=== PATIENT | female | born 1975 | race Caucasian/White ===

== ENCOUNTER 2016-12-01 12:40 | Emergency (ER) | payer BC ==
[2016-12-01 12:55] VITALS: BP 111/49
--- NOTE | 2016-12-01 13:33 | RAD ---
HISTORY: Right hand pain and trauma COMPARISONS: None VIEWS: 4, Frontal, lateral, and oblique views of the right hand FINDINGS: BONE DENSITY: Normal. BONES: There is no displaced fracture. JOINTS: There is no arthropathy. ALIGNMENT: There is no dislocation. SOFT TISSUES: Unremarkable. OTHER FINDINGS: None. IMPRESSION: NO ACUTE OSSEOUS INJURY. IF SYMPTOMS PERSIST, RECOMMEND REPEAT IMAGING.
--- NOTE | 2016-12-01 13:37 | UC ---
Upper Extremity HPI - HPI Summary HPI Summary: Patient presents with CC of pain to thumb and first finger with pain radiating up her wrist after she fell onto an outstretched hand. She is unaware of the specific mechanism of action and states she was slightly intoxicated when she fell. Denies hitting head or LOC. Denies other injuries. Pain is radiating to the middle of the right forearm, but denies numbness or tingling. Denies color or temperature changes. She is unable to flex and extend the thumb. Denies previous injury to the area. - History of Current Complaint Chief Complaint: UCUpperExtremity Stated Complaint: RT HAND INJURY Time Seen by Provider: 12/01/16 12:51 Hx Obtained From: Patient Hx Last Menstrual Period: 11/28/16 ?: No Onset/Duration: Sudden Onset Severity Initially: Moderate Severity Currently: Moderate Pain Intensity: 8 Pain Scale Used: 0-10 Numeric Location Of Pain: Is Discrete @ - right thumb and first finger pain Aggravating Factor(s): Movement, Flexion, Extension Alleviating Factor(s): Rest Associated Signs And Symptoms: Positive: Negative Related History: Dominant Hand Right - Risk Factors Non-Orthopedic Risk Factor: Negative DVT Risk Factors: Negative Septic Arthritis Risk Factor: Negative Compartment Syndrome Risk Factors: Pain - Allergies/Home Medications Allergies/Adverse Reactions: Allergies Allergy/AdvReac Type Severity Reaction Status Date / Time Prochlorperazine Allergy See Comment Verified 12/01/16 12:55 [From Compazine] Home Medications: Home Medications Escitalopram Oxalate [Lexapro 20 mg] 20 mg PO DAILY 12/01/16 [History Confirmed 12/01/16] PMH/Surg Hx/FS Hx/Imm Hx Previously Healthy: Yes - Surgical History Surgical History: None - Family History Known Family History: Positive: Unknown - Social History Occupation: Employed Full-time Lives: With Family Alcohol Use: Occasionally Substance Use Type: None Smoking Status (MU): Never Smoked Tobacco Review of Systems Constitutional: Negative Skin: Negative Respiratory: Negative Cardiovascular: Negative Motor: Decreased ROM - thumb and index finger with pain on active and passive ROM Musculoskeletal: Arthralgia - thumb and index of right hand Neurological: Negative Psychological: Negative All Other Systems Reviewed And Are Negative: Yes Physical Exam Triage Information Reviewed: Yes Appearance: Well-Appearing, No Pain Distress, Well-Nourished Vital Signs: Initial Vital Signs Temp 98.3 F 12/01/16 12:51 Pulse 61 12/01/16 12:51 Resp 16 12/01/16 12:51 BP 111/49 12/01/16 12:51 Pulse Ox 99 12/01/16 12:51 Vital Signs Reviewed: Yes Eye Exam: Normal Eyes: Positive: Conjunctiva Clear Neck exam: Normal Neck: Positive: Supple, No Lymphadenopathy Respiratory Exam: Normal Respiratory: Positive: Chest non-tender, Lungs clear Cardiovascular Exam: Normal Cardiovascular: Positive: RRR Musculoskeletal: Positive: Strength Limited @ - thum of right hand, ROM Limited @ - thumb flexion and extension Psychological Exam: Normal Psychological: Positive: Normal Response To Family Skin Exam: Normal Upper Extremity Course/Dx - Course Course Of Treatment: No acute osseus injury. Recommended repeat imaging if symptoms persist. Discussed with patient the need for further evaluation if symptoms do not improve. Ortho follow up given. Thumb spica placed. Patient is unable to flex or extend the right thumb. Ligamentous injury explained to patient and she is OK with follow up. Return precautions given. URI. - Differential Dx/Diagnosis Differential Diagnosis/HQI/PQRI: Contusion, Strain, Sprain Provider Diagnoses: Skier's Thumb/ Thumb Strain Discharge - Discharge Plan Condition: Stable Disposition: HOME Patient Education Materials: Skier's Thumb (ED) Referrals: Jes Garcia [Primary Care Provider] - Adam Saunders MD [Medical Doctor] - Additional Instructions: You have a strain in your thumb. If your symptoms persist, we recommend repeat imaging and follow up with ortho. I have given you an ortho physician referral. Thumb spica splint for 2-3 days. Ice the area, rest, the area. Ibuprofen 600mg three times daily.
== END 2016-12-01 13:48 | disposition home or self-care (01) ==
LOC: UCEAST 12:40
DX: Z72.0 Tobacco use (principal); S63.601A Unspecified sprain of right thumb, initial encounter; W18.30XA Fall on same level, unspecified, initial encounter; Y93.9 Activity, unspecified; Y92.9 Unspecified place or not applicable; Y99.9 Unspecified external cause status
CPT/HCPCS: 99211; G0463

== ENCOUNTER 2018-03-19 13:07 | Emergency (ER) | payer BC, OTHER ==
[2018-03-19 14:55] LABS: ABS Basophils 0.1 10^3/ul (0-0.2); ABS Eosinophils 0.2 10^3/ul (0-0.6); ABS Lymphocytes 2.1 10^3/ul (1.0-4.8); ABS Monocytes 0.9 10^3/ul (0-0.8); ABS Neutrophils 7.6 10^3/ul (1.5-7.7); ABS Nucleated RBC 0 10^3/ul; Eosinophil % 1.8 % (0-6); Hematocrit 43 % (35-47); Hemoglobin 14.4 g/dl (12.0-16.0); Lymphocyte % 19.1 % (25-47); Mean Corpuscular HGB Conc 34 g/dl (31-36); Mean Corpuscular Hemoglobin 33 pg (27-31); Mean Corpuscular Volume 96 fL (80-97); Mean Platelet Volume 9.1 um3 (7.4-10.4); Nucleated Red Blood Cells % 0.1; Platelet Count 284 10^3/ul (150-450); Red Blood Count 4.42 10^6/ul (4.00-5.40); Red Cell Distribution Width 13 % (10.5-15); White Blood Count 10.9 10^3/ul (3.5-10.8)
[2018-03-19 15:14] LABS: EGFR Non-African American 78.3 (>60)
[2018-03-19 15:16] LABS: Urine Appearance Clear; Urine Blood Negative (Negative); Urine Color Straw; Urine Ketones Negative (Negative); Urine Protein Negative (Negative); Urine Red Blood Cell Trace(0-2/hpf) (Absent); Urine Urobilinogen Negative (Negative); Urine White Blood Cell Trace(0-5/hpf) (Absent)
--- NOTE | 2018-03-19 15:24 | ED ---
Abdominal Pain/Female - HPI Summary HPI Summary: This pt is a 42 y/o female presenting to [facility] [place]/o right sided abdominal pain x3 days. Pt reports her pain began 3 days ago located on the right side of her abdomen. She has hx of ovarian cysts and states she thought this pain was her ovarian cysts. Pt notes ovarian cyst pain usually resolved on its own and this time her pain persisted. At onset of her abd pain, she rates it 7/10 in severity. Currently her pain is worse. Denies nausea, vomiting, diarrhea, constipation, fever, chills, vaginal discharge, vaginal bleeding. PMHx: uterine ablation, knee surgery, breast surgery, ovarian cysts. LMP: 2 weeks ago. Denies tobacco and drug use. Pt notes occasional alcohol use. - History of Current Complaint Chief Complaint: EDAbdPain Stated Complaint: ABD PAIN Time Seen by Provider: 03/19/18 15:15 Hx Obtained From: Patient Hx Last Menstrual Period: 11/28/16 Onset/Duration: Lasting Days, Still Present Timing: Days Severity Currently: Severe Pain Intensity: 8 Pain Scale Used: 0-10 Numeric Aggravating Factor(s): Nothing Alleviating Factor(s): Nothing Associated Signs and Symptoms: Negative: Fever, Constipation, Vaginal Bleeding, Vaginal Discharge, Nausea, Vomiting, Diarrhea Allergies/Adverse Reactions: Allergies Allergy/AdvReac Type Severity Reaction Status Date / Time prochlorperazine Allergy See Comment Verified 03/19/18 15:23 [From Compazine] PMH/Surg Hx/FS Hx/Imm Hx Endocrine/Hematology History: Denies: Hx Diabetes Cardiovascular History: Denies: Hx Congestive Heart Failure, Hx Hypertension History: Reports: Other Problems/Disorders - ovarian cysts Denies: Hx Renal Disease - Surgical History Surgery Procedure, Year, and Place: Uterine ablation. Knee surgery. Breast reduction Infectious Disease History: No Infectious Disease History: Denies: History Other Infectious Disease, Traveled Outside the [place] in Last 30 Days - Family History Known Family History: Positive: Hypertension, Diabetes Family History: dyslipidemia - Social History Alcohol Use: Occasionally Substance Use Type: Reports: None Smoking Status (MU): Never Smoked Tobacco Review of Systems Negative: Fever, Chills Cardiovascular: Negative Respiratory: Negative Positive: Abdominal Pain. Negative: Vomiting, Diarrhea, Nausea, Other - constipation Negative: discharge, other - vaginal bleeding All Other Systems Reviewed And Are Negative: Yes Physical Exam - Summary Physical Exam Summary: VITAL SIGNS: Reviewed. GENERAL: Patient is an obese female. Patient is not in any acute respiratory distress. HEAD AND FACE: Normocephalic and atraumatic. EYES: PERRLA, EOMI x 2, No injected conjunctiva. EARS: Hearing grossly intact. Ear canals and tympanic membranes are WNL. MOUTH: Oropharynx within normal limits. NECK: Supple, trachea is midline, no adenopathy, no JVD. CHEST: Symmetric, no tenderness at palpation LUNGS: Clear to auscultation bilaterally. No wheezing or crackles. CVS: RRR, S1 and S2 present, no murmurs or gallops appreciated. ABDOMEN: Soft, right lower quadrant abdominal tenderness. No signs of distention. Positive bowel sounds. Abd with guarding. No rebound and no masses palpated. No abdominal bruit or pulsations. Right pelvic tenderness. EXTREMITIES: FROM in all major joints, no edema, no cyanosis or clubbing. NEURO: Alert and oriented x 3. No acute neurological deficits. Speech is normal. SKIN: Dry and warm Triage Information Reviewed: Yes Vital Signs On Initial Exam: Initial Vitals Temp Pulse Resp BP Pulse Ox 97.2 F 87 16 126/68 98 03/19/18 13:09 03/19/18 13:09 03/19/18 13:09 03/19/18 13:09 03/19/18 13:09 Vital Signs Reviewed: Yes Diagnostics - Vital Signs Vital Signs Temp Pulse Resp BP Pulse Ox 03/19/18 14:43 98.2 F 72 16 120/51 100 03/19/18 13:09 97.2 F 87 16 126/68 98 - Laboratory Lab Results: Lab Results 03/19/18 03/19/18 03/19/18 Range/Units 14:40 14:40 14:42 WBC 10.9 H (3.5-10.8) 10^3/ul RBC 4.42 (4.00-5.40) 10^6/ul Hgb 14.4 (12.0-16.0) g/dl Hct 43 (35-47) % MCV 96 (80-97) fL MCH 33 H (27-31) pg MCHC 34 (31-36) g/dl RDW 13 (10.5-15) % Plt Count 284 (150-450) 10^3/ul MPV 9.1 (7.4-10.4) um3 Neut % (Auto) 70.3 (38-83) % Lymph % (Auto) 19.1 L (25-47) % Smith % (Auto) 8.2 H (0-7) % Eos % (Auto) 1.8 (0-6) % Baso % (Auto) 0.6 (0-2) % Absolute Neuts (auto) 7.6 (1.5-7.7) 10^3/ul Absolute Lymphs (auto) 2.1 (1.0-4.8) 10^3/ul Absolute Monos (auto) 0.9 H (0-0.8) 10^3/ul Absolute Eos (auto) 0.2 (0-0.6) 10^3/ul Absolute Basos (auto) 0.1 (0-0.2) 10^3/ul Absolute Nucleated RBC 0 10^3/ul Nucleated RBC % 0.1 Sodium 138 (135-145) mmol/L Potassium 4.1 (3.5-5.0) mmol/L Chloride 105 (101-111) mmol/L Carbon Dioxide 27 (22-32) mmol/L Anion Gap 6 (2-11) mmol/L BUN 10 (6-24) mg/dL Creatinine 0.81 (0.51-0.95) mg/dL Est GFR ( Amer) 94.8 (>60) Est GFR (Non-Af Amer) 78.3 (>60) BUN/Creatinine Ratio 12.3 (8-20) Glucose 111 H (70-100) mg/dL Lactic Acid 0.6 (0.5-2.0) mmol/L Calcium 9.2 (8.6-10.3) mg/dL Total Bilirubin 0.30 (0.2-1.0) mg/dL AST 13 (13-39) U/L ALT 10 (7-52) U/L Alkaline Phosphatase 57 (34-104) U/L C-Reactive Protein 5.24 (<8.01) mg/L Total Protein 6.9 (6.4-8.9) g/dL Albumin 4.3 (3.2-5.2) g/dL Globulin 2.6 (2-4) g/dL Albumin/Globulin Ratio 1.7 (1-3) Lipase 23 (11.0-82.0) U/L Urine Color Urine Appearance Urine pH (5-9) Ur Specific [place] (1.010-1.030) Urine Protein (Negative) Urine Ketones (Negative) Urine Blood (Negative) Urine Nitrate (Negative) Urine Bilirubin (Negative) Urine Urobilinogen (Negative) Ur Leukocyte Esterase (Negative) Urine WBC (Auto) (Absent) Urine RBC (Auto) (Absent) Ur Squamous Epith Cells (Absent) Urine Bacteria (Absent) Urine Glucose (Negative) 03/19/18 Range/Units 14:52 WBC (3.5-10.8) 10^3/ul RBC (4.00-5.40) 10^6/ul Hgb (12.0-16.0) g/dl Hct (35-47) % MCV (80-97) fL MCH (27-31) pg MCHC (31-36) g/dl RDW (10.5-15) % Plt Count (150-450) 10^3/ul MPV (7.4-10.4) um3 Neut % (Auto) (38-83) % Lymph % (Auto) (25-47) % Smith % (Auto) (0-7) % Eos % (Auto) (0-6) % Baso % (Auto) (0-2) % Absolute Neuts (auto) (1.5-7.7) 10^3/ul Absolute Lymphs (auto) (1.0-4.8) 10^3/ul Absolute Monos (auto) (0-0.8) 10^3/ul Absolute Eos (auto) (0-0.6) 10^3/ul Absolute Basos (auto) (0-0.2) 10^3/ul Absolute Nucleated RBC 10^3/ul Nucleated RBC % Sodium (135-145) mmol/L Potassium (3.5-5.0) mmol/L Chloride (101-111) mmol/L Carbon Dioxide (22-32) mmol/L Anion Gap (2-11) mmol/L BUN (6-24) mg/dL Creatinine (0.51-0.95) mg/dL Est GFR ( Amer) (>60) Est GFR (Non-Af Amer) (>60) BUN/Creatinine Ratio (8-20) Glucose (70-100) mg/dL Lactic Acid (0.5-2.0) mmol/L Calcium (8.6-10.3) mg/dL Total Bilirubin (0.2-1.0) mg/dL AST (13-39) U/L ALT (7-52) U/L Alkaline Phosphatase (34-104) U/L C-Reactive Protein (<8.01) mg/L Total Protein (6.4-8.9) g/dL Albumin (3.2-5.2) g/dL Globulin (2-4) g/dL Albumin/Globulin Ratio (1-3) Lipase (11.0-82.0) U/L Urine Color Straw Urine Appearance Clear Urine pH 6.0 (5-9) Ur Specific [place] 1.010 (1.010-1.030) Urine Protein Negative (Negative) Urine Ketones Negative (Negative) Urine Blood Negative (Negative) Urine Nitrate Negative (Negative) Urine Bilirubin Negative (Negative) Urine Urobilinogen Negative (Negative) Ur Leukocyte Esterase Trace A (Negative) Urine WBC (Auto) Trace(0-5/hpf) (Absent) Urine RBC (Auto) Trace(0-2/hpf) (Absent) Ur Squamous Epith Cells Present A (Absent) Urine Bacteria Absent (Absent) Urine Glucose Negative (Negative) Result Diagrams: 03/19/18 14:40 03/19/18 14:40 Lab Statement: Any lab studies that have been ordered have been reviewed, and results considered in the medical decision making process. - CT Abdomen/Pelvis CT CT Interpretation: No Acute Changes - IMPRESSION: 1. The appendix is unremarkable. 2. There is a 3.5 cm right ovarian cyst. 3. There is colonic diverticulosis without evidence for acute diverticulitis. 4. There are uterine fibroids, the largest measuring 2.[address] Heart has reviewed this report. CT Interpretation Completed By: Radiologist - Ultrasound No standard instances Ultrasound Interpretation: Positive (See Comments) - Transvaginal US IMPRESSION : 1. In the right ovary there is a 3.5 cm anechoic and avascular structure most consistent with a large follicle in a woman of this age. There is no sonographic evidence consistent with ovarian torsion. 2. At least 2 uterine fibroids are identified, both appear larger when compared to the May 23, 2016 pelvic ultrasound. 3. Again noted are pathologically enlarged periuterine veins measuring just under 7 mm in diameter. Such an appearance could be consistent with pelvic congestion syndrome which is characterized clinically by intermittent, late day, gravity dependent pelvic pain, severe menstrual pain, vague GI symptoms, dyspareunia and/or superficial varicose veins at the pelvis and lower extremities. Dr. Heart has reviewed this report. Ultrasound Interpretation Completed By: Radiologist Re-Evaluation - Re-Evaluation First Eval Re-Evaluation Time: 17:25 Comment: Dr. Cedeno in to see the pt. Abdominal Pain Fem Course/Dx - Course Course Of Treatment: This pt is a 42 y/o female presenting to [facility] c/o right sided abdominal pain x3 days. Pt reports her pain began 3 days ago located on the right side of her abdomen. She has hx of ovarian cysts and states she thought this pain was her ovarian cysts. Pt notes ovarian cyst pain usually resolved on its own and this time her pain persisted. At onset of her abd pain, she rates it 7/10 in severity. Currently her pain is worse. Denies nausea, vomiting, diarrhea, constipation, fever, chills, vaginal discharge, vaginal bleeding. PMHx: uterine ablation, knee surgery, breast surgery, ovarian cysts. LMP: 2 weeks ago. Denies tobacco and drug use. Pt notes occasional alcohol use. PELVIC U/S IMPRESSION: 1. In the right ovary there is a 3.5 cm anechoic and avascular structure most consistent with a large follicle in a woman of this age. There is no sonographic evidence consistent with ovarian torsion. 2. At least 2 uterine fibroids are identified, both appear larger when compared to the. May 23, 2016 pelvic ultrasound. 3. Again noted are pathologically enlarged periuterine veins measuring just under 7 mm in diameter. Such an appearance could be consistent with pelvic congestion syndrome which is characterized clinically by intermittent, late day, gravity dependent pelvic pain, severe menstrual pain, vague GI symptoms, dyspareunia and/or superficial varicose veins at the pelvis and lower extremities. In the ED course the patient was given IV fluids, she was given Zofran, morphine and Toradol for the pain. I decided to the abdominal pelvic CT to rule out appendicitis since the patient started having some pain. Abdominal and pelvic CT IMPRESSION: 1. The appendix is unremarkable. 2. There is a 3.5 cm right ovarian cyst. 3. There is colonic diverticulosis without evidence for acute diverticulitis. 4. There are uterine fibroids, the largest measuring 2.8 cm. I discussed the case with Dr. Garcia from surgery who reviewed the abdominal pelvic CT and he is certain that this is not an appendicitis. Therefore I believe that the patients symptoms are secondary to the right ovarian cyst. I also discussed the case with and Dr. Jay who will be happy to follow up with the patient as an outpatient for possible ruling out and pelvic congestion syndrome. I discussed all the findings and test results with the patient. Patient was instructed to return to the emergency room immediately if any of the symptoms return or worsens. Plan of care was discussed with the patient and understands and agrees. All questions were answered at patient satisfaction. There were no further complaints or concerns. Lung exam before discharge: CTA B/L. Good air exchange. No wheezing or crackles heard. CVS: S1 and S2 present. No murmurs appreciated. Patient is alert and oriented x 3. Patient is hemodynamically stable. Patient will be discharged home with follow up PCP in the next 2-3 days. - Diagnoses Provider Diagnoses: Ovarian cyst Discharge - Sign-Out/Discharge Documenting (check all that apply): Patient Departure - Discharge home - Discharge Plan Condition: Stable Disposition: HOME Prescriptions: HYDROcodone/ACETAMIN 5-325 MG* [[place] 5-325 TAB*] 1 tab PO Q6H PRN #10 tab MDD 4 PRN Reason: Pain Naproxen TAB* [Naprosyn 250 mg TAB*] 500 mg PO BID PRN #20 tab PRN Reason: Pain Patient Education Materials: Ovarian Cyst (ED) Referrals: Jes Garcia [Primary Care Provider] - Marc Cedeno MD [Medical Doctor] - Additional Instructions: FOLLOW UP WITH DR. CEDENO. RETURN TO THE ED FOR ANY NEW OR WORSENING SYMPTOMS. - Billing Disposition and Condition Condition: STABLE Disposition: Home - Attestation Statements Document Initiated by Licha: Yes Documenting Scribe: Mabel Paulson Provider For Whom Licha is Documenting (Include Credential): Harsh Heart MD Scribe Attestation: Mabel Fernández scribed for Harsh Heart MD on 03/20/18 at 0849. Scribe Documentation Reviewed: Yes Provider Attestation: The documentation as recorded by the Mabel lechuga Paulson accurately reflects the service I personally performed and the decisions made by me, Harsh Heart MD
[2018-03-19] MEDS ORDERED: NS 0.9% 1000 ML* 1,000 ML IV ONE (15:54)
[2018-03-19] MEDS ORDERED: Ondansetron INJ* 2 MG/ML VIAL IV ONE (15:54)
[2018-03-19] MEDS ORDERED: Morphine VIAL* 10 MG/ML 1 ML VIAL IV ONE (15:54)
[2018-03-19] MEDS ORDERED: Morphine INJ* 4 MG/ML 1 ML SYRINGE (NEW SYRINGE VERSION) ONE (16:55)
[2018-03-19] MEDS ORDERED: Morphine INJ* 4 MG/ML 1 ML SYRINGE (NEW SYRINGE VERSION) IV ONE (17:00)
--- NOTE | 2018-03-19 17:08 | RAD ---
INDICATION: Right lower quadrant and pelvic pain COMPARISON: Similar pelvic ultrasound dated May 23, 2016 TECHNIQUE: Real-time transabdominal and transvaginal ultrasound examination of the female pelvis including grayscale and Doppler color flow imaging. FINDINGS: Unless otherwise specified comparisons below reference the May 23, 2016 pelvic ultrasound Uterus: The uterus measures 10.9 x 5.9 x 5.6 cm. There are at least 2 well-circumscribed isoechoic masses within the uterus. At the right of midline anterior fundus a mass measures 2.2 x 1.7 x 1.7 cm, previously 1.7 x 1.4 x 1.4 cm. At the left of midline posterior mid level uterus abutting the endometrial stripe is a well-circumscribed mass measuring 3.0 x 2.7 x 3.0 cm, previously 2.0 x 2.0 x 2.0 cm. The endometrial stripe measures 8 mm in thickness and is mostly smooth and homogenous except where distorted by the submucosal uterine fibroid. Similar to the prior pelvic ultrasound there are pathologically enlarged periuterine veins measuring just under 7 mm in diameter in the left adnexal area. Ovaries: The right and left ovary measure 5.7 x 3.4 x 4.0 cm and 3.2 x 1.7 x 1.9 cm, respectively. Normal arterial and venous waveforms are identified. Within the right ovary there is an anechoic and avascular structure measuring 3.5 cm in greatest dimension most consistent with a large ovarian follicle in a woman of this age. There is no free fluid in the cul-de-sac. IMPRESSION: 1. In the right ovary there is a 3.5 cm anechoic and avascular structure most consistent with a large follicle in a woman of this age. There is no sonographic evidence consistent with ovarian torsion. 2. At least 2 uterine fibroids are identified, both appear larger when compared to the May 23, 2016 pelvic ultrasound. 3. Again noted are pathologically enlarged periuterine veins measuring just under 7 mm in diameter. Such an appearance could be consistent with pelvic congestion syndrome which is characterized clinically by intermittent, late day, gravity dependent pelvic pain, severe menstrual pain, vague GI symptoms, dyspareunia and/or superficial varicose veins at the pelvis and lower extremities.
[2018-03-19] MEDS ORDERED: Iohexol 300* (CONTRAST) 10 ML SDV IV ONE (17:45)
[2018-03-19] MEDS ORDERED: Ketorolac INJ* 30 MG/ML 1 ML VIAL IV PUSH ONE (18:03)
--- NOTE | 2018-03-19 18:24 | RAD ---
EXAM: CT Abdomen and Pelvis With Intravenous Contrast EXAM DATE/TIME: 03/19/2018 5:55 PM CLINICAL HISTORY: 42 years old, female; Pain; Abdominal pain; Additional info: Rlq pain TECHNIQUE: Axial computed tomography images of the abdomen and pelvis with intravenous contrast. All CT scans at this facility use at least one of these dose optimization techniques: automated exposure control; mA and/or kV adjustment per patient size (includes targeted exams where dose is matched to clinical indication); or iterative reconstruction. Coronal and sagittal reformatted images were created and reviewed. CONTRAST: 121 ml of omni 300 administered intravenously. COMPARISON: PELVIC US PELVIC COMPLETE 02/07/2012 4:35 PM FINDINGS: Lower thorax: There is bibasilar atelectatic change or scarring. ABDOMEN: Liver: Normal. No mass. Gallbladder and bile ducts: Normal. No calcified stones. No ductal dilation. Pancreas: Normal. No ductal dilation. Spleen: Normal. No splenomegaly. Adrenals: Normal. No mass. Kidneys and ureters: Normal. No hydronephrosis. Stomach and bowel: There is colonic diverticulosis without evidence for acute diverticulitis. Appendix: The appendix is unremarkable. The appendix is seen best on axial image 44 of series 2. PELVIS: Bladder: Unremarkable as visualized. Reproductive: There is a 3.5 cm right ovarian cyst. There are uterine fibroids, the largest measuring 2.8 cm. ABDOMEN and PELVIS: Intraperitoneal space: Normal. No free air. No significant fluid collection. Bones/joints: No acute fracture. No dislocation. Soft tissues: Unremarkable. Vasculature: Normal. No abdominal aortic aneurysm. Lymph nodes: Normal. No enlarged lymph nodes. IMPRESSION: 1. The appendix is unremarkable. 2. There is a 3.5 cm right ovarian cyst. 3. There is colonic diverticulosis without evidence for acute diverticulitis. 4. There are uterine fibroids, the largest measuring 2.[address] [facility] with a general question: [facility] - [phone] For direct physician to physician contact: Physician Hotline - [phone] [facility] ([facility] Facility ID #[id number])
[2018-03-19 19:22] VITALS: BP 112/69
--- NOTE | 2018-03-21 08:10 | ED ---
Progress - Progress Note Progress Note: Patient's preliminary urine culture reveals greater than 100,000 Staphylococcus Lugdenensis. She presented with abdominal pain and was discharged with pain medication. UA reveals squamos cells. Final results pending. Re-Evaluation - Re-Evaluation First Eval Re-Evaluation Time: 17:25 Comment: Dr. Cedeno in to see the pt. Course/Dx - Course Course Of Treatment: This pt is a 42 y/o female presenting to [facility] c/o right sided abdominal pain x3 days. Pt reports her pain began 3 days ago located on the right side of her abdomen. She has hx of ovarian cysts and states she thought this pain was her ovarian cysts. Pt notes ovarian cyst pain usually resolved on its own and this time her pain persisted. At onset of her abd pain, she rates it 7/10 in severity. Currently her pain is worse. Denies nausea, vomiting, diarrhea, constipation, fever, chills, vaginal discharge, vaginal bleeding. PMHx: uterine ablation, knee surgery, breast surgery, ovarian cysts. LMP: 2 weeks ago. Denies tobacco and drug use. Pt notes occasional alcohol use. PELVIC U/S IMPRESSION: 1. In the right ovary there is a 3.5 cm anechoic and avascular structure most consistent with a large follicle in a woman of this age. There is no sonographic evidence consistent with ovarian torsion. 2. At least 2 uterine fibroids are identified, both appear larger when compared to the. May 23, 2016 pelvic ultrasound. 3. Again noted are pathologically enlarged periuterine veins measuring just under 7 mm in diameter. Such an appearance could be consistent with pelvic congestion syndrome which is characterized clinically by intermittent, late day, gravity dependent pelvic pain, severe menstrual pain, vague GI symptoms, dyspareunia and/or superficial varicose veins at the pelvis and lower extremities. In the ED course the patient was given IV fluids, she was given Zofran, morphine and Toradol for the pain. I decided to the abdominal pelvic CT to rule out appendicitis since the patient started having some pain. Abdominal and pelvic CT IMPRESSION: 1. The appendix is unremarkable. 2. There is a 3.5 cm right ovarian cyst. 3. There is colonic diverticulosis without evidence for acute diverticulitis. 4. There are uterine fibroids, the largest measuring 2.8 cm. I discussed the case with Dr. Garcia from surgery who reviewed the abdominal pelvic CT and he is certain that this is not an appendicitis. Therefore I believe that the patients symptoms are secondary to the right ovarian cyst. I also discussed the case with and Dr. Jay who will be happy to follow up with the patient as an outpatient for possible ruling out and pelvic congestion syndrome. I discussed all the findings and test results with the patient. Patient was instructed to return to the emergency room immediately if any of the symptoms return or worsens. Plan of care was discussed with the patient and understands and agrees. All questions were answered at patient satisfaction. There were no further complaints or concerns. Lung exam before discharge: CTA B/L. Good air exchange. No wheezing or crackles heard. CVS: S1 and S2 present. No murmurs appreciated. Patient is alert and oriented x 3. Patient is hemodynamically stable. Patient will be discharged home with follow up PCP in the next 2-3 days. - Diagnoses Provider Diagnoses: Ovarian cyst Discharge - Sign-Out/Discharge Documenting (check all that apply): Post-Discharge Follow Up - Discharge Plan Condition: Stable Disposition: HOME Prescriptions: HYDROcodone/ACETAMIN 5-325 MG* [[place] 5-325 TAB*] 1 tab PO Q6H PRN #10 tab MDD 4 PRN Reason: Pain Naproxen TAB* [Naprosyn 250 mg TAB*] 500 mg PO BID PRN #20 tab PRN Reason: Pain Patient Education Materials: Ovarian Cyst (ED) Referrals: Jes Garcia [Primary Care Provider] - Marc Cedeno MD [Medical Doctor] - Additional Instructions: FOLLOW UP WITH DR. CEDENO. RETURN TO THE ED FOR ANY NEW OR WORSENING SYMPTOMS. - Billing Disposition and Condition Condition: STABLE Disposition: Home
--- NOTE | 2018-03-22 06:01 | PN ---
Progress Note - Progress Note Date of Service: 03/22/18 Note: patient urine culture grew Staph ludgenesis >100,000. will place on macrobid [id number]. called and spoke with patient about results
== END 2018-03-19 19:22 | disposition home or self-care (01) ==
LOC: ED 13:07
DX: N83.201 Unspecified ovarian cyst, right side (principal); K57.90 Diverticulosis of intestine, part unspecified, without perforation or abscess without bleeding; N39.0 Urinary tract infection, site not specified; B95.7 Other staphylococcus as the cause of diseases classified elsewhere
CPT/HCPCS: 36415; 74177; 76830; 80053; 81003; 81015; 83605; 83690; 85025; 86140; 87077; 87086; 87186; 96361; 96374; 96375; 96376; 99283; J1885; J2270; J2405; Q9967

== ENCOUNTER 2019-06-21 11:29 | Emergency (ER) | payer OTHER ==
[2019-06-21 11:42] VITALS: BP 128/66
--- NOTE | 2019-06-21 13:03 | UC ---
Abdominal Pain Female HPI - HPI Summary HPI Summary: 44-year-old female presenting with right lower abdominal pain since last night. Patient states is gradually worsening. States it feels like a dull ache at all times with intermittent sharp pains. Denies radiating pain. Denies aggravating or alleviating factors. Notes intermittent nausea. Denies changes in bowel movements including diarrhea and constipation. Denies vomiting. Denies dysuria, hematuria, frequency, and urgency. Denies flank pain. Notes decreased appetite since yesterday when pain began but still able to eat and drink fluids. Denies fever and chills. PSHx significant for total hysterectomy with BSO. Denies anything like this in the past. Denies striking anything for pain relief. - History of Current Complaint Chief Complaint: UCAbdominalPain Stated Complaint: LOWER ABDOMINAL PAIN Hx Obtained From: Patient Hx Last Menstrual Period: 11/28/16 Onset/Duration: Sudden Onset Pain Intensity: 8 Pain Scale Used: 0-10 Numeric Allergies/Adverse Reactions: Allergies Allergy/AdvReac Type Severity Reaction Status Date / Time prochlorperazine Allergy See Comment Verified 06/21/19 11:42 [From Compazine] PMH/Surg Hx/FS Hx/Imm Hx Previously Healthy: Yes - Surgical History Surgical History: Yes Surgery Procedure, Year, and Place: Uterine ablation. Knee surgery. Breast reduction - Family History Known Family History: Positive: Unknown, Hypertension, Diabetes Family History: dyslipidemia - Social History Alcohol Use: Occasionally Substance Use Type: None Smoking Status (MU): Never Smoked Tobacco Review of Systems All Other Systems Reviewed And Are Negative: Yes Constitutional: Positive: Negative. Negative: Fever, Chills ENT: Positive: Negative Respiratory: Positive: Negative Cardiovascular: Positive: Negative Gastrointestinal: Positive: Abdominal Pain - R lower abdominal pain, Nausea - intermittent. Negative: Vomiting, Diarrhea Genitourinary: Positive: Negative. Negative: Dysuria, Hematuria, Frequency, Urgency Musculoskeletal: Negative: Myalgia Neurological: Negative: Headache Physical Exam Triage Information Reviewed: Yes Appearance: Pain Distress - tearful, Obese Vital Signs: Initial Vital Signs Temp 98.1 F 06/21/19 11:39 Pulse 64 06/21/19 11:39 Resp 12 06/21/19 11:39 BP 128/66 06/21/19 11:39 Pulse Ox 98 06/21/19 11:39 Lab Results 06/21/19 06/21/19 Range/Units 13:11 13:12 POC Urine Color Yellow POC Urine Clarity Clear POC Urine pH 7.0 (5-9) POC Ur Specif [place] 1.020 (1.010-1.030) POC Urine Protein Negative (Negative) POC Ur Glucose (UA) Negative (Negative) POC Urine Ketones Negative (Negative) POC Urine Blood Negative (Negative) POC Urine Nitrite Negative (Negative) POC Urine Bilirubin Negative (Negative) POC Urine Urobilinogen 0.2 (Negative) POC U Leukocyte Esteras Negative (Negative) POC Ur Test Negative (Negative) Vital Signs Reviewed: Yes Eyes: Positive: Conjunctiva Clear ENT: Positive: Hearing grossly normal Neck: Positive: Supple Respiratory Exam: Normal Respiratory: Positive: Lungs clear, Normal breath sounds, No respiratory distress, No accessory muscle use Cardiovascular Exam: Normal Cardiovascular: Positive: RRR, No Murmur. Negative: Tachycardia Abdomen Description: Positive: No Organomegaly, Soft, Guarding, McBurney's Point Tenderness, Other: - Negative rovsings and psoas signs. Negative: Nontender - RLQ tenderness to palpation, CVA Tenderness (R), CVA Tenderness (L) , Distended Bowel Sounds: Positive: Present - BS+4 Neurological: Positive: Alert Psychological: Positive: Age Appropriate Behavior Skin Exam: Normal - no erythema or ecchymosis Abd Pain Female Course/Dx - Course Course Of Treatment: Patient presenting with R lower abdominal pain since last night. Negative UA. Patient in increasing pain distress. Discussed with patient that it is recommended that she go to the emergency room upon departure from urgent care for further evaluation and work up of acute RLQ pain. Patient voiced understanding and agreed to drive herself to the emergency room from here. - Differential Dx/Diagnosis Differential Diagnosis: Appendicitis, Bowel Obstruction, Irritable Bowel Syndrome, Renal Colic, Urinary Tract Infection Provider Diagnosis: Acute abdominal pain in right lower quadrant Discharge ED - Sign-Out/Discharge Documenting (check all that apply): Patient Departure All imaging exams completed and their final reports reviewed: No Studies - Discharge Plan Condition: Stable Disposition: HOME-RECOMMEND TO ED Patient Education Materials: Acute Abdominal Pain (ED) Referrals: Jes Garcia [Primary Care Provider] - Additional Instructions: The provider that evaluated you today thinks that you need additional testing that can be completed the emergency department. It is recommended that you go directly to emergency department for further evaluation. This evaluation included blood work or imaging. This testing will be directed and decided by the provider that evaluates you at the emergency department. If pain becomes worse, you feel lightheaded, you have uncontrolled vomiting, or you have any other concerns while you are being driven to emergency department as recommended to pullover and contact 911. - Billing Disposition and Condition Condition: STABLE Disposition: Home-Recommend to ED - Attestation Statements Provider Attestation: This patient was not seen by me. I was available for consult. Chart reviewed. KIARA
== END 2019-06-21 13:30 | disposition home health service (06) ==
LOC: UCEAST 11:29
DX: R10.31 Right lower quadrant pain (principal); Z88.8 Allergy status to other drugs, medicaments and biological substances
CPT/HCPCS: 81003; 84702; 99212; G0463

== ENCOUNTER 2019-06-21 13:48 | Emergency (ER) | payer OTHER ==
[2019-06-21 14:30] LABS: ABS Basophils 0.1 10^3/ul (0-0.2); ABS Eosinophils 0.2 10^3/ul (0-0.6); ABS Lymphocytes 1.7 10^3/ul (1.0-4.8); ABS Monocytes 0.8 10^3/ul (0-0.8); ABS Neutrophils 4.3 10^3/ul (1.5-7.7); Eosinophil % 2.4 %; Hematocrit 42 % (35-47); Hemoglobin 14.4 g/dL (12.0-16.0); Lymphocyte % 24.1 %; Mean Corpuscular HGB Conc 34 g/dL (31-36); Mean Corpuscular Hemoglobin 33 pg (27-31); Mean Corpuscular Volume 97 fL (80-97); Mean Platelet Volume 9.6 fL (7.4-10.4); Platelet Count 287 10^3/uL (150-450); Red Blood Count 4.34 10^6 /uL (3.70-4.87); Red Cell Distribution Width 13 % (10-15); White Blood Count 7.1 10^3/uL (3.5-10.8)
[2019-06-21 14:49] LABS: Albumin 4.5 g/dL (3.2-5.2); Albumin/Globulin Ratio 1.7 (1-3); BUN/Creatinine Ratio 11.1 (8-20); C Reactive Protein 6.92 mg/L (<8.01); Calcium 9.3 mg/dL (8.6-10.3); EGFR African American 93.8 (>60); EGFR Non-African American 77.5 (>60); Globulin 2.6 g/dL (2-4); Total Bilirubin 0.6 mg/dL (0.2-1.0); Total Protein 7.1 g/dL (6.4-8.9)
[2019-06-21] MEDS ORDERED: NS 0.9% 1000 ML** 1,000 ML IV ONE (18:20)
[2019-06-21] MEDS ORDERED: Ketorolac INJ* 30 MG/ML 1 ML VIAL IV PUSH ONE (18:20)
[2019-06-21] MEDS ORDERED: Ondansetron INJ* 2 MG/ML VIAL IV ONE (18:20)
--- NOTE | 2019-06-21 19:19 | ED ---
GI/ HPI - HPI Summary HPI Summary: 44 year old female presents with abdominal pain since this morning. States that is in her right lower quadrant. She states she's had no appetite. She admits to nausea but no vomiting. No fevers. No cough. No urinary symptoms. Has history of total hysterctomy with ovaries removed. She is on hormone replacement. She denies any abnormal vaginal discharge. No other abdominal surgeries. Has no medical conditions. she states she had a bowel movement today that did not change the pain. - History of Current Complaint Chief Complaint: EDAbdPain Time Seen by Provider: 06/21/19 18:13 Stated Complaint: ABD PAIN PER PT Hx Last Menstrual Period: 11/28/16 Pain Intensity: 9 - Allergy/Home Medications Allergies/Adverse Reactions: Allergies Allergy/AdvReac Type Severity Reaction Status Date / Time prochlorperazine Allergy See Comment Verified 06/21/19 11:42 [From Compazine] Home Medications: Home Medications Estradiol [Margaux] 0.1 mg TRANSDERM WEEKLY 06/21/19 [History Confirmed 06/21/19] PMH/Surg Hx/FS Hx/Imm Hx Endocrine/Hematology History: Denies: Hx Diabetes Cardiovascular History: Denies: Hx Congestive Heart Failure, Hx Hypertension History: Reports: Other Problems/Disorders - ovarian cysts Denies: Hx Renal Disease - Cancer History Hx Chemotherapy: No Hx Radiation Therapy: No - Surgical History Surgery Procedure, Year, and Place: Uterine ablation. Knee surgery. Breast reduction Infectious Disease History: No Infectious Disease History: Denies: History Other Infectious Disease, Traveled Outside the [place] in Last 30 Days - Family History Known Family History: Positive: Unknown, Hypertension, Diabetes Family History: dyslipidemia - Social History Alcohol Use: Occasionally Substance Use Type: Reports: None Smoking Status (MU): Never Smoked Tobacco Review of Systems Negative: Fever Negative: Chest Pain Negative: Shortness Of Breath Positive: Abdominal Pain, Nausea. Negative: Vomiting, Diarrhea All Other Systems Reviewed And Are Negative: Yes Physical Exam Triage Information Reviewed: Yes Vital Signs On Initial Exam: Initial Vitals Temp Pulse Resp BP Pulse Ox 96.7 F 69 18 134/81 99 06/21/19 13:49 06/21/19 13:49 06/21/19 13:49 06/21/19 13:49 06/21/19 13:49 Vital Signs Reviewed: Yes Appearance: Positive: Well-Appearing Skin: Positive: Warm, Dry Head/Face: Positive: Normal Head/Face Inspection Eyes: Positive: Normal, EOMI, HELENE, Conjunctiva Clear ENT: Positive: Pharynx normal Respiratory/Lung Sounds: Positive: Clear to Auscultation, Breath Sounds Present Cardiovascular: Positive: Normal, RRR Abdomen Description: Positive: Soft, Other: - tenderness in RLQ Bowel Sounds: Positive: Present Musculoskeletal: Positive: Normal Neurological: Positive: Normal Psychiatric: Positive: Normal Procedures - Sedation Patient Received Moderate/Deep Sedation with Procedure: No Diagnostics - Vital Signs Vital Signs Temp Pulse Resp BP Pulse Ox 06/21/19 19:08 64 144/75 99 06/21/19 19:05 65 100 06/21/19 18:26 69 98 06/21/19 18:24 65 148/72 99 06/21/19 17:34 97.9 F 66 18 143/79 98 06/21/19 15:43 98.6 F 65 16 121/63 99 06/21/19 13:49 96.7 F 69 18 134/81 99 - Laboratory Lab Results: Lab Results 06/21/19 06/21/19 06/21/19 Range/Units 14:04 14:04 14:04 WBC 7.1 (3.5-10.8) 10^3/uL RBC 4.34 (3.70-4.87) 10^6 /uL Hgb 14.4 (12.0-16.0) g/dL Hct 42 (35-47) % MCV 97 (80-97) fL MCH 33 H (27-31) pg MCHC 34 (31-36) g/dL RDW 13 (10-15) % Plt Count 287 (150-450) 10^3/uL MPV 9.6 (7.4-10.4) fL Neut % (Auto) 61.1 % Lymph % (Auto) 24.1 % [place] % (Auto) 11.3 % Eos % (Auto) 2.4 % Baso % (Auto) 1.1 % Absolute Neuts (auto) 4.3 (1.5-7.7) 10^3/ul Absolute Lymphs (auto) 1.7 (1.0-4.8) 10^3/ul Absolute Monos (auto) 0.8 (0-0.8) 10^3/ul Absolute Eos (auto) 0.2 (0-0.6) 10^3/ul Absolute Basos (auto) 0.1 (0-0.2) 10^3/ul Absolute Nucleated RBC 0.0 10^3/ul Nucleated RBC % 0.0 Sodium 138 (135-145) mmol/L Potassium 4.0 (3.5-5.0) mmol/L Chloride 104 (101-111) mmol/L Carbon Dioxide 27 (22-32) mmol/L Anion Gap 7 (2-11) mmol/L BUN 9 (6-24) mg/dL Creatinine 0.81 (0.51-0.95) mg/dL Est GFR ( Amer) 93.8 (>60) Est GFR (Non-Af Amer) 77.5 (>60) BUN/Creatinine Ratio 11.1 (8-20) Glucose 99 (70-100) mg/dL Lactic Acid 0.6 (0.5-2.0) mmol/L Calcium 9.3 (8.6-10.3) mg/dL Total Bilirubin 0.60 (0.2-1.0) mg/dL AST 17 (13-39) U/L ALT 16 (7-52) U/L Alkaline Phosphatase 54 (34-104) U/L C-Reactive Protein 6.92 (<8.01) mg/L Total Protein 7.1 (6.4-8.9) g/dL Albumin 4.5 (3.2-5.2) g/dL Globulin 2.6 (2-4) g/dL Albumin/Globulin Ratio 1.7 (1-3) Lipase 22 (11.0-82.0) U/L Result Diagrams: 06/21/19 14:04 06/21/19 14:04 Lab Statement: Any lab studies that have been ordered have been reviewed, and results considered in the medical decision making process. - Radiology abd Radiology Interpretation Completed By: Radiologist Summary of Radiographic Findings: IMPRESSION: No acute findings. Re-Evaluation - Re-Evaluation First Eval Re-Evaluation Time: 20:28 Change: Improved Comment: pain still present GIGU Course/Dx - Course Course Of Treatment: 44 year old female presents with abdominal pain since this morning. States that is in her right lower quadrant. She states she's had no appetite. She admits to nausea but no vomiting. No fevers. No cough. No urinary symptoms. Has history of total hysterctomy with ovaries removed. She is on hormone replacement. She denies any abnormal vaginal discharge. No other abdominal surgeries. Has no medical conditions. she states she had a bowel movement today that did not change the pain. On exam tenderness right lower quadrant. wbc normal. CRP normal. CT shows no acute abnormality. will discharge to have follow up with primary. patient understand and agrees with plan. - Diagnoses Differential Diagnoses - Female: Appendicitis, Diverticulitis, Urinary Tract Infection Provider Diagnoses: Abdominal pain Discharge ED - Sign-Out/Discharge Documenting (check all that apply): Patient Departure - Discharge Plan Condition: Good Disposition: HOME Patient Education Materials: Acute Abdominal Pain (ED) Referrals: Jes Garcia [Primary Care Provider] - Additional Instructions: Your pain is not caused by any surgical emergency Drink small amounts of fluid as tolerated When able to eat follow BRAT diet: Bananas, rice, applesauce, toast Take ibuprofen or Tylenol for pain as needed every 6 hours Follow up with primary within 5 days Return to ED if develop any new or worsening symptoms - Billing Disposition and Condition Condition: GOOD Disposition: Home
[2019-06-21 19:47] LABS: Urine Appearance Cloudy; Urine Bilirubin Negative (Negative); Urine Blood Negative (Negative); Urine Color Yellow; Urine Glucose Negative (Negative); Urine Ketones 1+ (Negative); Urine Nitrite Negative (Negative); Urine Protein Negative (Negative); Urine Specific Gravity 1.017 (1.010-1.030); Urine Urobilinogen Negative (Negative)
[2019-06-21] MEDS ORDERED: Iohexol 300* (CONTRAST) 10 ML SDV IV ONE (19:50)
[2019-06-21 22:57] VITALS: BP 130/73
== END 2019-06-21 22:57 | disposition home or self-care (01) ==
LOC: ED 13:48
DX: R10.9 Unspecified abdominal pain (principal); Z79.899 Other long term (current) drug therapy; R11.0 Nausea
CPT/HCPCS: 36415; 74177; 80053; 81003; 83605; 83690; 85025; 86140; 96361; 96374; 96375; 99283; J1885; J2405; Q9967